=== PATIENT | male | born 1945 | race Two or more races ===

== ENCOUNTER 2022-05-24 12:00 | Emergency (ER) | payer OTHER ==
[~2022-05-24] VITALS: Ht 162.6 cm; Wt 70.3 kg
== END 2022-05-24 16:59 | disposition home or self-care (01) ==
LOC: ER 12:00
DX: K80.20 Calculus of gallbladder without cholecystitis without obstruction (principal); Z88.8 Allergy status to other drugs, medicaments and biological substances

== ENCOUNTER 2022-06-11 15:20 | Inpatient (IN) | payer OTHER ==
[~2022-06-11] VITALS: Ht 134.6 cm; Wt 70.3 kg
[~2022-06-11 15:20] MED LIST: FLAGYL I.V500 MG/100 PO; PROTONIX40 MG PO; SIMVASTATIN5 MG PO; TRAMADOL HCL50 MG PO
== END 2022-06-15 20:34 | disposition home or self-care (01) | DRG 188 ==
LOC: ER 15:20 → SEC-K 06-12 09:38 → SURH 06-12 10:20
PROVIDERS: ADMIT Surgery; ATTEND Surgery
DX: J90 Pleural effusion, not elsewhere classified (principal); J44.9 Chronic obstructive pulmonary disease, unspecified; R09.02 Hypoxemia; I10 Essential (primary) hypertension; Z20.822 Contact with and (suspected) exposure to COVID-19